=== PATIENT | female | born 1940 ===

== ENCOUNTER → 2017-12-07 | Outpatient (CLI) | payer OTHER ==
[~2017-12-07] MED LIST: ASPI81CH PO; CYAN1000; Cranberry300 MG PO; ERGO50000; Hair, Skin & N1 EACH; LOVA40; MAGOXI400; METF500C
== END | disposition home or self-care (01) ==
LOC: LAB SHORT 14:35 → LAB 14:35
PROVIDERS: Nurse Practitioner Women's Health
DX: Z12.4 Encounter for screening for malignant neoplasm of cervix (principal)
CPT/HCPCS: 87624; G0123